=== PATIENT | female | born 1990 | race Two or more races ===

== ENCOUNTER 2016-11-12 17:59 | Emergency (ER) | payer OTHER ==
[2016-11-12 19:32] LABS: SPECIFIC GRAVITY 1.015 (1.001-1.030); URINE APPEARANCE CLEAR; URINE BILIRUBIN NEGATIVE (NEGATIVE); URINE BLOOD 1+ (NEGATIVE); URINE COLOR YELLOW; URINE GLUCOSE (UA) NEGATIVE (NEGATIVE); URINE LEUKOCYTE ESTERASE TRACE (NEGATIVE); URINE NITRITE NEGATIVE (NEGATIVE); URINE PROTEIN NEGATIVE (NEGATIVE); URINE UROBILINOGEN NORMAL (0-1 mg/dl)
[2016-11-12 19:51] LABS: URINE BACTERIA FEW; URINE RBC 0-1 /hpf
== END 2016-11-12 20:13 | disposition home or self-care (01) ==
LOC: ED 17:59
DX: O20.9 Hemorrhage in early pregnancy, unspecified (principal); Z3A.17 17 weeks gestation of pregnancy